=== PATIENT | female | born 1985 | race African-American/Black ===

== ENCOUNTER 2018-03-25 14:55 | Emergency (ER) | payer OTHER ==
[2018-03-25] MEDS ORDERED: Ketorolac 60 MG/2 ML SDV IM ONE (15:40)
[2018-03-25] MEDS ORDERED: Sodium Chloride 0.9% 2.5 ML Syringe FLUSH PRN (15:45)
[2018-03-25] MEDS ORDERED: Sodium Chloride 0.9% 10 ML Syringe FLUSH PRN (15:45)
[2018-03-25] MEDS ORDERED: Ketorolac 30 MG/ML SDV IVPUSH ONE (16:03)
[2018-03-25 16:20] LABS: CHLORIDE,CL 104 mmol/L (98-107); SODIUM,NA 139 mmol/L (136-145)
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
[2018-03-25] MEDS ORDERED: Iopamidol 755 Mg/ML 100 ML Bottle IVPUSH STA (18:47)
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
== END 2018-03-25 18:50 | disposition home or self-care (01) ==
LOC: MW.ED 14:55
DX: S20.212A Contusion of left front wall of thorax, initial encounter (principal); S50.12XA Contusion of left forearm, initial encounter; V43.52XA Car driver injured in collision with other type car in traffic accident, initial encounter
CPT/HCPCS: 36415; 71045; 71260; 73090; 80053; 85025; 99285; J1885; Q9967; 96374; 99284